=== PATIENT | female | born 1955 | race Caucasian/White ===

== ENCOUNTER 2021-10-07 09:52 | Day surgery (SDC) | payer MEDICARE, BC ==
[~2021-10-07] VITALS: Ht 160 cm; Wt 95.5 kg
[2021-10-07] MEDS ORDERED: ALEN10 (10:25)
[2021-10-07] MEDS ORDERED: OMEP20ER (10:25)
[2021-10-07] MEDS ORDERED: B12-FOLIC ACID1 EACH (10:25)
[2021-10-07] MEDS ORDERED: D3-5000125 MCG (10:25)
[2021-10-07] MEDS ORDERED: Calcium Carbon500 MG (10:25)
[2021-10-07] MEDS ORDERED: LORA10ER (10:26)
[2021-10-07] MEDS ORDERED: GABA100 (10:26)
[2021-10-07] MEDS ORDERED: NYSTRIT (10:26)
--- NOTE | 2021-10-07 12:19 | NUR ---
10/07/21 1219 Irene Orozco PT. VOIDED BEFORE DISCHARGE.
== END 2021-10-07 12:12 | disposition home or self-care (01) ==
LOC: ORSCSDS 09:52
PROVIDERS: Internal Medicine Gastroenterology
PROC: 0D758ZZ Dilation of Esophagus, Via Natural or Artificial Opening Endoscopic (ICD-10-PCS; principal; 2021-10-07 11:30)
PROC: 0DB78ZX Excision of Stomach, Pylorus, Via Natural or Artificial Opening Endoscopic, Diagnostic (ICD-10-PCS; principal; 2021-10-07 11:30)
DX: R13.10 Dysphagia, unspecified (principal); K31.7 Polyp of stomach and duodenum; K22.2 Esophageal obstruction; G47.33 Obstructive sleep apnea (adult) (pediatric); G62.9 Polyneuropathy, unspecified; E66.9 Obesity, unspecified; Z68.37 Body mass index [BMI] 37.0-37.9, adult; Z79.899 Other long term (current) drug therapy
CPT/HCPCS: 88305; 88342; C1726; J2704; J3010; J7120

== ENCOUNTER 2022-05-12 08:31 | Inpatient (IN) | payer MEDICARE, BC ==
[~2022-05-12] VITALS: Ht 160 cm; Wt 98.5 kg
[~2022-05-12 08:31] MED LIST: ALEN10 PO; B12-FOLIC ACID1 EACH; Calcium Carbon500 MG PO; D3-5000125 MCG; GABA100 PO; LORA10ER PO; NYSTRIT; OMEP20ER PO
[2022-05-12 09:01] LABS: BASOPHILS ABSOLUTE AUTO 0.05 K/mm3 (0.00-0.23); BASOPHILS PERCENT AUTO 0 % (0-2); EOSINOPHILS PERCENT AUTO 0 % (0-6); Hematocrit 47.9 % (33.0-51.0); Hemoglobin 15.9 g/dL (11.5-16.0); IMMATURE GRAN ABSOLUTE AUTO 0.25 K/mm3 (0.00-0.10); IMMATURE GRAN PERCENT AUTO 1 % (0-1); LYMPHOCYTES ABSOLUTE AUTO 1.13 K/mm3 (0.84-5.20); LYMPHOCYTES PERCENT AUTO 6 % (21-46); MONOCYTES ABSOLUTE AUTO 1.32 K/mm3 (0.16-1.47); MONOCYTES PERCENT AUTO 7 % (4-13); Mean Corpuscular HGB 29.8 pg (26.0-34.0); Mean Corpuscular HGB Conc 33.2 g/dL (31.5-36.5); Mean Corpuscular Volume 90 fL (80-100); Mean Platelet Volume 9.7 fL (9.1-12.4); NEUTROPHILS ABSOLUTE AUTO 15.61 K/mm3 (1.96-9.15); NEUTROPHILS PERCENT AUTO 85 % (41-73); Platelet Count 420 K/mm3 (150-400); RDW Coefficient Variation 13.6 % (11.7-14.2); RDW Standard Deviation 44.3 fL (35.1-46.3); Red Blood Cell Count 5.34 M/mm3 (3.80-5.20); White Blood Cell Count 18.36 K/mm3 (4.00-11.30)
[2022-05-12 09:22] LABS: Albumin, Blood 2.7 g/dL (3.4-5.0); Albumin/Globulin Ratio 0.7 (0.8-1.8); Bilirubin, Total 1.6 mg/dL (0.1-1.0); Bun/Creatinine Ratio 21.8 (12.0-20.0); Calcium, Blood 8.8 mg/dL (8.5-10.1); Creatinine, Blood 0.87 mg/dL (0.40-1.00); Globulin, Blood 3.7 g/dL (2.2-4.0); Potassium, Blood 3.6 mmol/L (3.5-5.5); Total Protein, Blood 6.4 g/dL (6.4-8.2)
[2022-05-12 12:14] LABS: Source, Urine Straight Cath
[2022-05-12 12:35] LABS: Appearance, Urine Clear (Clear); Blood, Urine Neg (Neg); Color, Urine Amber (P-Yellow); Glucose Qualitative, Urine Neg (Neg); Ketones, Urine 1+ (Neg); Leukocyte Esterase, Urine 1+ (Neg); Nitrite, Urine Pos (Neg); Protein, Urine 2+ (Neg); Specific Gravity, Urine 1.025 (1.003-1.022); Urobilinogen, Urine 2+ (Normal)
[2022-05-12 12:51] LABS: Bilirubin, Urine 2+ (Neg)
[2022-05-12 12:53] LABS: Red Blood Cells, Urine Not Seen /hpf (0-2); Squamous Epithelial Cells Few /hpf (Few)
[2022-05-12 12:54] LABS: Bacteria Mod /hpf
[2022-05-12 16:05] LABS: Base Excess Venous -2.6 mmol/L; Bicarbonate Venous 22.8 mmol/L (24.0-30.0); PCO2 Venous 34.5 mmHg (38-42); pH Blood Venous 7.41 (7.34-7.37)
--- NOTE | 2022-05-12 18:07 | NUR ---
ARRIVAL/SHIFT SUMMARY PT ARRIVED TO ROOM PCU04 VIA GURNEY FROM ER, PT ABLE TO STAND AND AMBULATE TO BED, REPORTS OF ABD PAIN WITH AMBULATION. ADMISSION COMPLETE. PT RESTING COMFORTABLY IN BED. ORIENTED TO ROOM AND UNIT ROUTINES, CALL LIGHT USE. PT VERBALIZES UNDERSTANDING, CALL LIGHT IN REACH, WILL CONTINUE TO MONITOR AND GIVE REPORT TO NOC SHIFT RN.
--- NOTE | 2022-05-13 04:26 | NUR ---
SHIFT SUMMARY PT IS A&OX3-4, SHE IS CONFUSED ON THE CURRENT YEAR AND HER BIRTHDAY. PT ANSWERS APPROPRIATELY, BUT IS A POOR HISTORIAN. SHE HAS BEEN SR/ST 90'S-120'S THIS SHIFT AND HAS DENIED ANY ANGINA OR CHEST DISCOMFORT. AT THE START OF THE SHIFT SHE WAS ON 2L NC BUT HAS BEEN TITRAITED DOWN TO 1L AND SP02 >90%. WHEN THE PT GOT SWITCHED TO THE CPAP HER SP02 RANGED FROM 88-94%. PT DENIES SOB EXCEPT WHEN SHE TAKES A DEEP BREATH. PT HAS BEEN NAUSEATED THIS SHIFT AND HAS HAD ABDOMINAL PAIN, SHE WAS MEDICATED PER EMAR AND HAS BEEN ABLE TO SLEEP MOST OF THE SHIFT. PT HAS HER BED IN A LOW POSITION, CALL LIGHT IS IN REACH OF THE PT, AND A BED ALARM IS ON. WILL CONTINUE CARE UNTIL SHIFT REPORT IS GIVEN TO THE ONCOMING SHIFT RN. SEE NOTES FOR ANY UPDATES.
[2022-05-13 04:33] LABS: BASOPHILS ABSOLUTE AUTO 0.04 K/mm3 (0.00-0.23); BASOPHILS PERCENT AUTO 0 % (0-2); EOSINOPHILS PERCENT AUTO 0 % (0-6); Hematocrit 40.2 % (33.0-51.0); Hemoglobin 13.2 g/dL (11.5-16.0); IMMATURE GRAN ABSOLUTE AUTO 0.36 K/mm3 (0.00-0.10); IMMATURE GRAN PERCENT AUTO 2 % (0-1); LYMPHOCYTES ABSOLUTE AUTO 1.09 K/mm3 (0.84-5.20); LYMPHOCYTES PERCENT AUTO 7 % (21-46); MONOCYTES ABSOLUTE AUTO 1.76 K/mm3 (0.16-1.47); MONOCYTES PERCENT AUTO 11 % (4-13); Mean Corpuscular HGB 30.3 pg (26.0-34.0); Mean Corpuscular HGB Conc 32.8 g/dL (31.5-36.5); Mean Corpuscular Volume 92 fL (80-100); Mean Platelet Volume 10.3 fL (9.1-12.4); NEUTROPHILS ABSOLUTE AUTO 13.04 K/mm3 (1.96-9.15); NEUTROPHILS PERCENT AUTO 80 % (41-73); Platelet Count 315 K/mm3 (150-400); RDW Coefficient Variation 13.6 % (11.7-14.2); RDW Standard Deviation 46.5 fL (35.1-46.3); Red Blood Cell Count 4.35 M/mm3 (3.80-5.20); White Blood Cell Count 16.29 K/mm3 (4.00-11.30)
[2022-05-13 04:55] LABS: Albumin/Globulin Ratio 0.6 (0.8-1.8); Bilirubin, Total 1.2 mg/dL (0.1-1.0); Bun/Creatinine Ratio 26.7 (12.0-20.0); Calcium, Blood 8.4 mg/dL (8.5-10.1); Creatinine, Blood 0.86 mg/dL (0.40-1.00); Globulin, Blood 3.4 g/dL (2.2-4.0); Potassium, Blood 3.6 mmol/L (3.5-5.5); Total Protein, Blood 5.4 g/dL (6.4-8.2)
--- NOTE | 2022-05-13 07:24 | NUR ---
Pt is alert, oriented to person, place, ongoing events, date and time. In no apparent distress, and no discomfort/needs vocalized until staff ask her about it. She says that she is having nausea and abdominal pain which is at this time absent. states that taking deep breaths gives her pain in her mid upper abdomen, radiating throughout. States that it is worse when she gets up, and moves to the bottom part of her belly. States last BM was yesterday, and unusual that it was doll in color. The doll color stools started 3 days ago, with her other symptoms as well.
--- NOTE | 2022-05-13 07:34 | NUR ---
Declines any antinausea meds at this time. States she has not vomited, and doesn't like to take medications unless really neccessary.
--- NOTE | 2022-05-13 07:39 | NUR ---
Vital signs are stable. Pt has been weaned off of her oxygen, spo2 93-94% on room air while awake.
--- NOTE | 2022-05-13 07:52 | NUR ---
Ambulatory to bathroom to void. Urine is strong smelling, cheyenne in color. pt reports a little bit of pain when urinating.
--- NOTE | 2022-05-13 10:29 | NUR ---
Pt appears to be sleeping comfortably. IV infusing LR in right forearm, zosyn in the right wrist site.
--- NOTE | 2022-05-13 13:38 | NUR ---
Attemted to call Jose pt's nephew at his request to update on pt condition. Left voice message.
--- NOTE | 2022-05-13 15:13 | NUR ---
Phone call to Jose, the pt's nephew. His questions were answered.
--- NOTE | 2022-05-13 15:37 | NUR ---
Pt appears to be lying comfortably in bed, eyes closed. No supplemental oxygen. Respirations even, tachypneic at 24/min, unlabored, shallow. Spo2 95% on room air with HOB elevated 45 degrees. Awakens easily to voice. Afebrile, tachycardic at 105 bpm. Denies nausea. States that she tried to eat some ice cream but every time that she took a bite she got a sharp pain in the middle of her abdomen. Denies any discomfort occuring when she ate breakfast and lunch today.
--- NOTE | 2022-05-13 17:44 | NUR ---
Pt called to say that she was having nausea, constant since eating ice cream earlier. She is also having intermittent abdominal pain, 7/10, and feels like her breathing is difficult. She is lying in bed, elevated at 45 degrees, RR 32/minute, with spo2 97% on room air. She does not appear to be in any distress, but says that her breathing is shallow and when she takes a deep breath she has a sharp pain in her right upper shoulder. Her lung sounds are clear. States that she passed a lot of gas earlier today, and had two small round white stools which the CARBURIZER and "head RN" looked at and said they had not ever seen anything like it.
--- NOTE | 2022-05-13 18:13 | NUR ---
At this time, pt states that she is feeling better. STates that her nausea is less, and that her pain is down from 7/10 to 2/10. She appears to be calm, peaceful and not in any distress.
--- NOTE | 2022-05-13 22:40 | NUR ---
ASSUMTION OF CARE REPORT OBTAINED FROM RETA RAMIREZ. PT HAS BEEN RESTING IN BED W/ NO COMPLAINTS. DURING HER ASSESSMENT SHE DID STATE HER ABDOMEN IS TENDER BUT IT FEELS BETTER SINCE BEING MEDICATED BY DAY SHIFT RN. PT IS A 1P TX TO THE [facility] [place] W/O AN ISSUES, MOVES IND IN BED, AND CALLS APPROPRIATELY. THE PT WAS ON RA AT THE BEGINING OF THE SHIFT AND WAS PUT ON 2L BECAUSE SHE WAS DESATURATING DOWN TO 86%. SHE HAS DENIED ANY SOB, EXCEPT WHENTAKING DEEP BREATHS. SHE IS CURRENTLY ON HER CPAP WHILE SLEEPING. PT IS MED NO TELE AND AWAITING BED PLACMENT ON SURGICAL OR MEDICAL FLOOR. WILL CONTINUE CARE UNTIL REPORT IS GIVEN TO THE ONCOMING NURSE OR NURSE TO ASSUME CARE.
--- NOTE | 2022-05-13 23:05 | NUR ---
CARE HANDED OFF TO ERROL RN AT ABOUT [id number]
--- NOTE | 2022-05-13 23:22 | NUR ---
PT WAS ASSIGNED TO ROOM 220 AND REPORT WAS GIVEN TO INDRA CLEMENT. MARIMAR FAUST PACKING UP THE PT'S ROOM AND TRANSFERING HER OVER NOW.
--- NOTE | 2022-05-13 23:43 | NUR ---
ARRIVAL TO THE UNIT: PT ARRIVED TO THE UNIT VIA BED AT 2330. A&0X4. TRANSFERED FROM PCU BED TO NEW SURGICAL FLOOR BED. CPAP IN ROOM, SET UP BY RESPIRATORY THERAPY. PT ON OXYGEN UPON ARRIVAL, PER PT REQUEST SHE IS STAYING ON OXYGEN FOR THE TIME BEING AND IS SET AT 2L VIA NC. DENIES PAIN. DENIES ABD PAIN OR DISCOMFORT. REPORTS THAT SHE HAS HAD SOME PAIN UPON URINATION TODAY. ORIENTED TO ROOM. CALL LIGHT IN REACH. IV FLUIDS RUNNING AT 150 ML/HR. PT SETTLED IN ROOM. VITALS TAKEN AND APPEAR STABLE. PT APPEARS TO BE IN NO DISTRESS.
--- NOTE | 2022-05-14 05:09 | NUR ---
SHIFT SUMMARY: PT WAS A PCU TRANSFER THIS SHIFT. PT HERE FOR A UTI AND ABD PAIN. A&OX4. PT TOLERATING PO FLUIDS AND FOOD. DENYING NAUSEA. REPORTS PASSING GAS. VSS. PLANS TO CONTINUE ROCEPHIN. PT RESTING AT THIS TIME WITH CALL LIGHT IN REACH. OXYGEN IN PLACE. PT USED CPAP FOR FIRST PART OF SHIFT AFTER BEING TRANSFERED. WILL GIVE REPORT TO DAY TIME RN.
[2022-05-14 15:31] LABS: BASOPHILS ABSOLUTE AUTO 0.01 K/mm3 (0.00-0.23); BASOPHILS PERCENT AUTO 0 % (0-2); EOSINOPHILS ABSOLUTE AUTO 0.05 K/mm3 (0.00-0.68); EOSINOPHILS PERCENT AUTO 1 % (0-6); Hematocrit 38.6 % (33.0-51.0); Hemoglobin 12.4 g/dL (11.5-16.0); IMMATURE GRAN ABSOLUTE AUTO 0.11 K/mm3 (0.00-0.10); IMMATURE GRAN PERCENT AUTO 1 % (0-1); LYMPHOCYTES ABSOLUTE AUTO 0.64 K/mm3 (0.84-5.20); LYMPHOCYTES PERCENT AUTO 6 % (21-46); MONOCYTES ABSOLUTE AUTO 0.93 K/mm3 (0.16-1.47); MONOCYTES PERCENT AUTO 9 % (4-13); Mean Corpuscular HGB 29.8 pg (26.0-34.0); Mean Corpuscular HGB Conc 32.1 g/dL (31.5-36.5); Mean Corpuscular Volume 93 fL (80-100); Mean Platelet Volume 10.3 fL (9.1-12.4); NEUTROPHILS ABSOLUTE AUTO 8.53 K/mm3 (1.96-9.15); NEUTROPHILS PERCENT AUTO 83 % (41-73); Platelet Count 287 K/mm3 (150-400); RDW Coefficient Variation 13.6 % (11.7-14.2); Red Blood Cell Count 4.16 M/mm3 (3.80-5.20); White Blood Cell Count 10.27 K/mm3 (4.00-11.30)
--- NOTE | 2022-05-14 16:07 | NUR ---
SHIFT SUMMARY: NSTEMI NO SIGNIFICANT CHANGES WITH PATIENT DURING THIS SHIFT. PATIENT IS A&OX4. VS ARE WNL. PAIN IS MANAGED WITH ORAL PAIN MEDICATION. HER OLD MIDLINE ABD INCISION IS C/D/I. ABD IS SLIGHTLY TENDER TO PALPATATION BUT PATIENT STATED "IT ISN'T NEARLY BAD WHEN I FIRST CAME IN". SHE IS TOLERATING PO INTAKE AND IS VOIDING. SHE IS A SBA TO THE BATHROOM OR TO SIT UP IN THE CHAIR. SON IS AT BEDSIDE. PATIENT CALLS APPROPRIATELY AND HAS CALL LIGHT IN REACH. THE PLAN IS TO CONTINUE IV ABX AND TO START BOWEL CARE WELL ENCOURAGE MORE AMBULATION.
--- NOTE | 2022-05-14 23:13 | NUR ---
REPORT GIVEN TO YASMANY RUFF. PT IS SLEEPY THIS EVENING. WAS COMPLAINING OF ABD PAIN SOMEWHERE BETWEEN CRAMPS AND NAUSEA. MEDICATED PER EMAR. PT SEEMS MORE COMFORTABLE. PT GOT UP TO SIT IN CHAIR. CHAIR LOCKED AND CALL LIGHT IN REACH.
--- NOTE | 2022-05-15 01:33 | NUR ---
ASSUMED CARE @2300, PATIENT IS AOX4, SBA TO BATHROOM. CURRENTLY ON 2L 02 NC. SOB W/EXERTION. DENIES CHEST PAIN. BREATH SOUNDS DIM, AND VISUALLY SHALLOW. PATIENT IS UP IN THE CHAIR READING AND CALL LIGHT IS AVAILABLE. PULSE OX IS ON SATS @ 94%.
[2022-05-15 04:47] LABS: BASOPHILS ABSOLUTE AUTO 0.02 K/mm3 (0.00-0.23); BASOPHILS PERCENT AUTO 0 % (0-2); EOSINOPHILS ABSOLUTE AUTO 0.05 K/mm3 (0.00-0.68); EOSINOPHILS PERCENT AUTO 0 % (0-6); Hematocrit 39.4 % (33.0-51.0); Hemoglobin 12.6 g/dL (11.5-16.0); IMMATURE GRAN ABSOLUTE AUTO 0.15 K/mm3 (0.00-0.10); IMMATURE GRAN PERCENT AUTO 1 % (0-1); LYMPHOCYTES ABSOLUTE AUTO 0.79 K/mm3 (0.84-5.20); LYMPHOCYTES PERCENT AUTO 6 % (21-46); MONOCYTES ABSOLUTE AUTO 1.28 K/mm3 (0.16-1.47); MONOCYTES PERCENT AUTO 10 % (4-13); Mean Corpuscular HGB 29.6 pg (26.0-34.0); Mean Corpuscular Volume 93 fL (80-100); Mean Platelet Volume 10.5 fL (9.1-12.4); NEUTROPHILS ABSOLUTE AUTO 10.37 K/mm3 (1.96-9.15); NEUTROPHILS PERCENT AUTO 82 % (41-73); Platelet Count 316 K/mm3 (150-400); RDW Coefficient Variation 13.6 % (11.7-14.2); RDW Standard Deviation 46.5 fL (35.1-46.3); Red Blood Cell Count 4.25 M/mm3 (3.80-5.20); White Blood Cell Count 12.66 K/mm3 (4.00-11.30)
[2022-05-15 05:06] LABS: Bun/Creatinine Ratio 34.5 (12.0-20.0); Calcium, Blood 8.7 mg/dL (8.5-10.1); Creatinine, Blood 0.7 mg/dL (0.40-1.00); Potassium, Blood 3.7 mmol/L (3.5-5.5)
--- NOTE | 2022-05-15 05:51 | NUR ---
SUMMARY NO ACUTE CHANGES SINCE LAST NOTE. PATIENT SITTING IN RECLINER WITH BELONGINGS IN REACH. DENIES CHEST PAIN, SOB. TOLERATES INTAKE AND AMBULATION IN ROOM. 2L 02 NC. SATS ABOVE 94% CALL LIGHT IN REACH. WILL REPORT TO DAY RN.
[2022-05-15] MEDS ORDERED: ACET325 PO (12:06)
[2022-05-15] MEDS ORDERED: DOCU100 PO (12:06)
[2022-05-15] MEDS ORDERED: OXAYDO5 M1 PO (12:07)
[2022-05-15] MEDS ORDERED: MIRALAX17 GM PO (12:07)
[2022-05-15] MEDS ORDERED: VISBIOME 112.51 EACH PO (12:08)
[2022-05-15] MEDS ORDERED: SENN187 PO (12:08)
[2022-05-15] MEDS ORDERED: CEPH500 PO (12:09)
== END 2022-05-15 12:30 | disposition home health service (06) | DRG 690 ==
LOC: ER 08:31 → PCU 15:10 → SURS 05-13 23:38
PROVIDERS: Emergency Medicine; Internal Medicine; Nurse Practitioner Acute Care; ADMIT Family Medicine
DX: N39.0 Urinary tract infection, site not specified (principal); E78.5 Hyperlipidemia, unspecified; M81.0 Age-related osteoporosis without current pathological fracture; M19.90 Unspecified osteoarthritis, unspecified site; E66.01 Morbid (severe) obesity due to excess calories; R09.02 Hypoxemia; G47.33 Obstructive sleep apnea (adult) (pediatric); K21.9 Gastro-esophageal reflux disease without esophagitis; Z68.36 Body mass index [BMI] 36.0-36.9, adult; Z90.49 Acquired absence of other specified parts of digestive tract; Z98.890 Other specified postprocedural states; Z99.89 Dependence on other enabling machines and devices; Z93.1 Gastrostomy status; Z79.899 Other long term (current) drug therapy
CPT/HCPCS: 36415; 71045; 74177; 80048; 80053; 81001; 82803; 83605; 83690; 83880; 85025; 87040; 87086; 93005; 93010; 94660; 94760; 94762; 96365-59; 96367; 96375; 99285-25; A9270; J0696; J1650; J2270; J2405; J2543; J7030; J7120; P9612; Q9967

== ENCOUNTER 2022-05-18 06:22 | Emergency (ER) | payer MEDICARE, BC ==
[~2022-05-18] VITALS: Ht 160 cm; Wt 93.4 kg
[~2022-05-18 06:22] MED LIST changes: +ACET325 PO; +CEPH500 PO; +DOCU100 PO; +MIRALAX17 GM PO; +OXAYDO5 M1 PO; +SENN187 PO; +VISBIOME 112.51 EACH PO
[2022-05-18 07:30] LABS: Source, Urine Clean Catch
[2022-05-18 07:35] LABS: Hematocrit 48.6 % (33.0-51.0); Hemoglobin 15.8 g/dL (11.5-16.0); Mean Corpuscular HGB 29.6 pg (26.0-34.0); Mean Corpuscular HGB Conc 32.5 g/dL (31.5-36.5); Mean Corpuscular Volume 91 fL (80-100); Mean Platelet Volume 10.1 fL (9.1-12.4); NRBC ABSOLUTE 0.02 K/mm3 (0.00-0.02); NRBC Auto 0.1 /100 WBC (0.0-0.2); Platelet Count 506 K/mm3 (150-400); RDW Coefficient Variation 13.9 % (11.7-14.2); RDW Standard Deviation 46.3 fL (35.1-46.3); Red Blood Cell Count 5.34 M/mm3 (3.80-5.20); White Blood Cell Count 26.81 K/mm3 (4.00-11.30)
[2022-05-18 07:47] LABS: Blood, Urine 2+ (Neg); Glucose Qualitative, Urine 1+ (Neg); Ketones, Urine 2+ (Neg); Leukocyte Esterase, Urine 3+ (Neg); Nitrite, Urine Pos (Neg); Protein, Urine 3+ (Neg); Urobilinogen, Urine 3+ (Normal)
[2022-05-18 07:49] LABS: Bilirubin, Urine 3+ (Neg)
[2022-05-18 07:50] LABS: Appearance, Urine Hazy (Clear); Color, Urine Amber (P-Yellow)
[2022-05-18 07:52] LABS: Amorphous Light (0-Heavy); Bacteria Few /hpf; Squamous Epithelial Cells Mod /hpf (Few); Transitional Epithelial Cells Few /hpf (0-Rare)
[2022-05-18 07:55] LABS: Albumin, Blood 1.7 g/dL (3.4-5.0); Albumin/Globulin Ratio 0.4 (0.8-1.8); Bilirubin, Total 0.8 mg/dL (0.1-1.0); Bun/Creatinine Ratio 32.6 (12.0-20.0); Calcium, Blood 8.1 mg/dL (8.5-10.1); Creatinine, Blood 0.86 mg/dL (0.40-1.00); Globulin, Blood 4.1 g/dL (2.2-4.0); Potassium, Blood 4.3 mmol/L (3.5-5.5); Total Protein, Blood 5.8 g/dL (6.4-8.2)
[2022-05-18 08:11] LABS: BAND PERCENT MAN 5 % (0-8); BASOPHILS PERCENT MAN 0 % (0-2); EOSINOPHILS PERCENT MAN 0 % (0-6); LYMPHOCYTES ABSOLUTE MAN 0.53 K/mm3 (0.84-5.20); LYMPHOCYTES PERCENT MAN 2 % (21-46); MONOCYTES ABSOLUTE MAN 1.07 K/mm3 (0.16-1.47); MONOCYTES PERCENT MAN 4 % (4-13); MYELOCYTE ABSOLUTE MAN 0.53 K/mm3 (0.00-0.00); MYELOCYTE PERCENT MAN 2 % (0-0); NEUTROPHILS ABSOLUTE MAN 24.66 K/mm3 (1.96-9.15); SEG NEUTROPHILS PERCENT MAN 87 % (41-73); TOTAL CELLS COUNTED 100
== END 2022-05-18 12:25 | disposition short-term general hospital (02) ==
LOC: ER 06:22
PROVIDERS: Student in an Organized Health Care Education/Training Program
DX: A41.9 Sepsis, unspecified organism (principal); K65.9 Peritonitis, unspecified; R65.20 Severe sepsis without septic shock; Z79.899 Other long term (current) drug therapy
CPT/HCPCS: 36415; 71045; 74177; 80053; 81001; 83605; 83690; 84484; 85025; 93005; 93010; J2543; J3010; J3370; J7050; J7120; Q9967

== ENCOUNTER 2025-02-04 09:16 | Day surgery (SDC) | payer MEDICARE ==
[~2025-02-04] VITALS: Ht 160 cm; Wt 80.5 kg
[2025-02-04] MEDS ORDERED: EUTHYROX50 MC1 (09:35)
[2025-02-04 10:38] VITALS: BP 106/63
== END 2025-02-04 10:37 | disposition home or self-care (01) ==
LOC: ORSCSDS 09:16
PROVIDERS: Internal Medicine Gastroenterology
PROC: 0DJ08ZZ Inspection of Upper Intestinal Tract, Via Natural or Artificial Opening Endoscopic (ICD-10-PCS; principal; 2025-02-04 11:00)
DX: R13.10 Dysphagia, unspecified (principal); K44.9 Diaphragmatic hernia without obstruction or gangrene; K21.9 Gastro-esophageal reflux disease without esophagitis; K74.60 Unspecified cirrhosis of liver; G47.33 Obstructive sleep apnea (adult) (pediatric); E78.5 Hyperlipidemia, unspecified; G25.81 Restless legs syndrome; Z79.899 Other long term (current) drug therapy
CPT/HCPCS: J2704; J7120